=== PATIENT | male | born 1960 | race Caucasian/White ===

== ENCOUNTER 2022-02-09 13:44 | Day surgery (SDC) | payer OTHER ==
[~2022-02-09] VITALS: Ht 180.3 cm; Wt 110.7 kg
[~2022-02-09 13:44] MED LIST: ATOR40TA PO; Aspir 8181 MG PO; CARV25 PO; COQ-10100 MG PO; Crestor40 MG PO; GLUCOPHAGE1000 M1 PO; LOSARTAN POTAS100 M1 PO
== END 2022-02-09 15:38 | disposition home or self-care (01) ==
LOC: ORSCSDS 13:44
PROVIDERS: Surgery
PROC: 0DBL8ZX Excision of Transverse Colon, Via Natural or Artificial Opening Endoscopic, Diagnostic (ICD-10-PCS; principal; 2022-02-09 15:00)
DX: Z12.11 Encounter for screening for malignant neoplasm of colon (principal); D12.3 Benign neoplasm of transverse colon; Z87.891 Personal history of nicotine dependence; I10 Essential (primary) hypertension; E11.9 Type 2 diabetes mellitus without complications; Z79.84 Long term (current) use of oral hypoglycemic drugs; Z79.899 Other long term (current) drug therapy; Z79.82 Long term (current) use of aspirin
CPT/HCPCS: 82947; 88305; J0330; J0461; J2405; J2704; J7120

== ENCOUNTER 2024-07-30 08:57 | Day surgery (SDC) | payer OTHER ==
[2024-07-30] VITALS (16 sets, daily range): BP systolic 105–141; BP diastolic 62–84
[~2024-07-30] VITALS: Ht 180.3 cm; Wt 108.7 kg
[~2024-07-30 08:57] MED LIST changes: +Acetaminophen 500 MG Tab PO SCH; +C COMPLEX1000 M1 PO; +COQ1050 MG PO; +CeFAZolin Sodium 2,000 MG in NS 100 ML IV SCH; +Chlorhexidine Mouth Care 15 ML UDC MT SCH; +FentaNYL Citrate 50 MCG/ML 2 ML Injection ONE; +Lactated Ringer's 1,000 ML IV SCH; +OxyCODONE HCL 10 MG TABCR PO SCH; +Ropivacaine 0.5% HCl/Pf 123.125 MG,EPINEPHrine HCL 0.25 MG,Ketorolac Tromethamine 15 MG... INFIL SCH; +TOCO1000 PO; +TURMERIC PO; +Tranexamic Acid 1,000 MG in NS 100 ML IV SCH; +VITAMIN D310 MC4 PO; +Vitamin B Comple1 EA PO; +propofoL 80 ML IV ONE
[2024-07-30] MEDS ORDERED: CeFAZolin Sodium 2,000 MG VIAL ONE (08:58)
[2024-07-30] MEDS ORDERED: FLU VACC TS2024-25(6MOS UP)/PF 45 MCG/0.5 ML SYRINGE IM PRN (09:50)
[2024-07-30] MEDS ORDERED: DiphenhydrAMINE HCL 25 MG Cap PO PRN (09:50)
[2024-07-30] MEDS ORDERED: Lactated Ringer's 1,000 ML IV SCH (09:50)
--- NOTE | 2024-07-30 09:54 | NUR ---
History, Chart, Medications and Allergies reviewed before start of procedure. Pre-Op teaching done. Pt verbalizes understanding. Patient confirms NPO status and agrees with scheduled surgery. PT BELONGINGS BAG PLACED UNDER GURNEY. PT AT BS.
[2024-07-30] MEDS ORDERED: Magnesium Hydroxide Conc 10 ML UDC PO PRN (09:55)
[2024-07-30] MEDS ORDERED: Metoclopramide HCl 5MG / ML 2ML Vial IV PRN (09:55)
[2024-07-30] MEDS ORDERED: Ondansetron HCl 2 MG / ML 2ML Vial IV PRN (09:55)
[2024-07-30] MEDS ORDERED: Promethazine HCl 25 MG Tab PO PRN (09:55)
[2024-07-30] MEDS ORDERED: OxyCODONE HCL 5 MG TAB PO PRN ×2 (09:55→10:00)
[2024-07-30] MEDS ORDERED: HYDROmorphone HCl/Pf 1MG SYR IV PRN (09:55)
[2024-07-30] MEDS ORDERED: Prochlorperazine Edisylate 10 mg Vial IV PRN (10:00)
[2024-07-30] MEDS ORDERED: Midazolam HCl 1MG / ML 2ML Vial IV SCH (10:00)
[2024-07-30] MEDS ORDERED: Bisacodyl 10 MG Supp PR PRN (10:00)
[2024-07-30] MEDS ORDERED: propofoL 100 ML IV ONE (10:03)
[2024-07-30] MEDS ORDERED: Phenylephrine HCl 100 MCG/ML-NS 10MLSYR (1MG/10ML) ONE (10:46)
--- NOTE | 2024-07-30 10:52 | NUR ---
07/30/24 1052 Coby,Apoorva SPINAL BLOCK COMPLETED BY UPON ENTRY TO OR. PATIENT TOLERATED WELL.
[2024-07-30] MEDS ORDERED: Insulin Human Lispro 100 Units/ML 3ML Syringe SC SCH (11:30)
[2024-07-30] MEDS ORDERED: Ketorolac Tromethamine 15mg Vial IV SCH (12:00)
[2024-07-30] MEDS ORDERED: Tranexamic Acid 100 ML IV ONE (13:11)
[2024-07-30] MEDS ORDERED: Ketorolac Tromethamine 30mg Vial ONE (13:17)
[2024-07-30] MEDS ORDERED: Acetaminophen 500 MG Tab PO SCH (16:00)
[2024-07-30] MEDS ORDERED: Losartan Potassium 50 MG Tab PO SCH (17:30)
[2024-07-30] MEDS ORDERED: MetFORMIN HCl 500 mg PO SCH ×2 (17:30→21:00)
[2024-07-30] MEDS ORDERED: Carvedilol 25 MG Tab PO SCH (17:35)
[2024-07-30] MEDS ORDERED: CeFAZolin Sodium 2,000 MG in NS 100 ML IV SCH (18:00)
--- NOTE | 2024-07-30 19:05 | NUR ---
SHIFT SUMMARY PT HAS DONE WELL POST OP. WORKED w/ THERAPY. UP IN CHAIR. EATING & DRINKING BUT NO VOID YET. (I/O CATH IN PACU). PAIN WELL CONTROLLED.
[2024-07-30] MEDS ORDERED: Rosuvastatin Calcium 10 MG Tab PO SCH (21:00)
[2024-07-30] MEDS ORDERED: Docusate Sodium 100 MG Cap PO SCH (21:00)
[2024-07-31 03:56] VITALS: BP 126/68
--- NOTE | 2024-07-31 04:17 | NUR ---
SHIFT SUMMARY POD1 R DARSHAN. AQUACEL DRESSING REMAINS C/D/I. SENSATION AND CIRCULATION REMANS INTACT. VSS. PT SLEPT WELL T/O THE NIGHT. MEDICATED FOR PAIN WITH SCHEDULED MEDICATION AND 5 MG OF OXY. TOLLERATING PO INTAKE W/O N/V. LOW PO INTAKE NOTED D/T DROWSINESS POST ANESTHESIA, IVF INFUSING PER EMAR. OVERALL, NO ACUTE EVENTS NOTED. PLAN FOR PHYSICAL THERAPY AND D/C HOME TODAY.
[2024-07-31 04:22] LABS: BASOPHILS ABSOLUTE AUTO 0.02 K/mm3 (0.00-0.23); BASOPHILS PERCENT AUTO 0 % (0-2); EOSINOPHILS ABSOLUTE AUTO 0.13 K/mm3 (0.00-0.68); EOSINOPHILS PERCENT AUTO 2 % (0-6); Hemoglobin 11.9 g/dL (13.5-17.5); IMMATURE GRAN ABSOLUTE AUTO 0.04 K/mm3 (0.00-0.10); IMMATURE GRAN PERCENT AUTO 1 % (0-1); LYMPHOCYTES ABSOLUTE AUTO 1.47 K/mm3 (0.84-5.20); LYMPHOCYTES PERCENT AUTO 19 % (21-46); MONOCYTES ABSOLUTE AUTO 0.92 K/mm3 (0.16-1.47); MONOCYTES PERCENT AUTO 12 % (4-13); Mean Corpuscular HGB Conc 33.1 g/dL (31.5-36.5); Mean Corpuscular Volume 94 fL (80-100); Mean Platelet Volume 9.6 fL (9.1-12.4); NEUTROPHILS ABSOLUTE AUTO 5.27 K/mm3 (1.96-9.15); NEUTROPHILS PERCENT AUTO 67 % (41-73); Platelet Count 188 K/mm3 (150-400); RDW Coefficient Variation 12.9 % (11.7-14.2); RDW Standard Deviation 44.5 fL (35.1-46.3); Red Blood Cell Count 3.84 M/mm3 (4.30-5.90); White Blood Cell Count 7.85 K/mm3 (4.00-11.30)
[2024-07-31 04:42] LABS: Bun/Creatinine Ratio 16.8 (12.0-20.0); Calcium, Blood 8.8 mg/dL (8.5-10.1); Creatinine, Blood 0.77 mg/dL (0.60-1.20); Magnesium, Blood 1.7 mg/dL (1.6-2.4)
[2024-07-31 07:18] VITALS: BP 101/55
[2024-07-31] MEDS ORDERED: Cholecalciferol 1000 Unit Tablet (=25MCG) PO SCH (09:00)
[2024-07-31] MEDS ORDERED: Aspirin 81 MG Chew PO SCH (09:00)
[2024-07-31] MEDS ORDERED: Losartan Potassium 50 MG Tab PO SCH (09:00)
[2024-07-31] MEDS ORDERED: ACET500 PO (09:33)
[2024-07-31] MEDS ORDERED: SULTRIDS PO (09:33)
[2024-07-31] MEDS ORDERED: OXYC5 PO (09:34)
--- NOTE | 2024-07-31 12:07 | NUR ---
DISCHARGE HAS CLEARED THERAPY & PAIN WELL MANAGED. EATING, DRINKING, & VOIDING. POLAR PACK & DRSGS SENT. ESCORTED OUT VIA WC.
== END 2024-07-31 12:03 | disposition home or self-care (01) ==
LOC: ORSCMMR 08:57 → SURS 08:57 → ORSCMMR 08:59 → ORD 10:30 → ORSCMMR 10:30 → SURS 13:21 → ORSCMMR 07-31 12:03
PROVIDERS: Orthopaedic Surgery
PROC: 0SR90JA Replacement of Right Hip Joint with Synthetic Substitute, Uncemented, Open Approach (ICD-10-PCS; principal; 2024-07-31)
DX: M16.11 Unilateral primary osteoarthritis, right hip (principal); I10 Essential (primary) hypertension; E11.9 Type 2 diabetes mellitus without complications; I25.10 Atherosclerotic heart disease of native coronary artery without angina pectoris; Z87.891 Personal history of nicotine dependence; Z79.84 Long term (current) use of oral hypoglycemic drugs; Z79.899 Other long term (current) drug therapy; Z79.82 Long term (current) use of aspirin
CPT/HCPCS: 36415; 72170; 80048; 82947; 83735; 85025; 97110; 97116; 97161; 97530; A9270; C1776; J0171; J0690; J0735; J1171; J1885; J2250; J2371; J2405; J2704; J2795; J3010; J7120